=== PATIENT | female | born 1960 | race Caucasian/White ===

== ENCOUNTER → 2016-11-27 | Outpatient (CLI) | payer BC ==
[~2016-11-27] MED LIST: ALPR-412 PO; ASPCH81X PO; CALC1TAB9 PO; DULO60CA44 PO; GABA800T PO; LISI-789 PO; MULT-506 PO; TRAM-10 PO; WLLSR/150 PO; [UNRECOGNIZED DRUG - CODE] PO
[2016-11-27 12:40] LABS: BASO % 0.2 %; BASO ABS # 0.02 K/uL (0-0.2); COMPLETE YES; EOS % 0.4 %; HEMATOCRIT 40.1 % (37-47); IG% 0.2 %; LYMPH % 30.5 %; LYMPH ABS # 2.53 K/uL (1.2-3.4); MEAN CELL VOLUME 86.8 fL (80-100); MEAN CORPUSCULAR HEMOGLOBIN 29.2 pg (25-34); MEAN CORPUSCULAR HGB CONC 33.7 g/dl (32-36); MEAN PLATELET VOLUME 12.1 fL (7.4-10.4); MONO % 5.3 %; NEUT % 63.4 %; PLATELET COUNT 197 K/uL (130-400); RED BLOOD COUNT 4.62 M/uL (4.2-5.4)
[2016-11-27 12:53] LABS: ESTIMATED AVERAGE GLUCOSE 143 mg/dl; HA1C FLAG Normal (Normal)
[2016-11-27 14:15] LABS: ALKALINE PHOSPHATASE 92 U/L (45-117); ALT/SGPT 32 U/L (12-78); AST/SGOT 29 U/L (15-37); BLOOD UREA NITROGEN 16 mg/dl (7-18); BUN/CREATININE RATIO 23.3 (10-20); CALCIUM 9.1 mg/dl (8.5-10.1); CARBON DIOXIDE 26 mmol/L (21-32); CHLORIDE 106 mmol/L (98-107); GLUCOSE 102 mg/dl (70-99); POTASSIUM 4.2 mmol/L (3.5-5.1); SODIUM 141 mmol/L (136-145)
== END | disposition home or self-care (01) ==
LOC: C.LAB 11:31
PROVIDERS: ATTEND Family Medicine
DX: E11.9 Type 2 diabetes mellitus without complications (principal); E53.8 Deficiency of other specified B group vitamins

== ENCOUNTER → 2017-05-15 | Outpatient (CLI) | payer BC ==
--- NOTE | 2017-05-15 17:37 | DIAGNOSTIC IMAGING REPORT ---
LEFT HAND MIN 3 VIEWS ROUTINE CLINICAL HISTORY: M25.549 left hand pain COMPARISON: None. DISCUSSION: The bones are mildly osteopenic. No fractures are visualized. There are no erosive or destructive changes. There are osteoarthritic changes at the level of the first carpometacarpal joint. There is mild ulnar minus variance. Small corticated ossicles project anterior to the lunate on the lateral view. These are felt to be old. IMPRESSION: 1. No acute fractures 2. Osteoarthritic changes most pronounced at the level of the first carpometacarpal joint 3. Osteopenia Electronically signed by: Bill Sellers M.D. 05/15/2017 5:35 PM Dictated Date/Time: 05/15/2017 5:34 PM
--- NOTE | 2017-05-15 17:47 | DIAGNOSTIC IMAGING REPORT ---
LEFT WRIST MIN 3 VIEWS ROUTINE CLINICAL HISTORY: Left wrist pain. COMPARISON: None FINDINGS: Alignment of left wrist is anatomic. No acute fracture is identified. There is mild joint space narrowing of the radiocarpal articulation. Note is made of a 7 mm ossific/calcific density along the palmar aspect of the lunotriquetral articulation. This is chronic. There is moderate arthritis of the left first carpometacarpal joint. IMPRESSION: 1. No acute fracture or dislocation of the left wrist. 2. Moderate arthritis of the left first carpometacarpal joint and mild arthritis of the radiocarpal articulation. 3. 7 mm ossific/calcific density along the palmar aspect of the lunotriquetral articulation which is nonspecific but chronic. Electronically signed by: Jayesh Gooden M.D. 05/15/2017 5:45 PM Dictated Date/Time: 05/15/2017 5:43 PM
== END | disposition home or self-care (01) ==
LOC: C.RAD 17:14
PROVIDERS: ATTEND Nurse Practitioner Adult Health
DX: M18.52 Other unilateral secondary osteoarthritis of first carpometacarpal joint, left hand (principal); M25.532 Pain in left wrist

== ENCOUNTER → 2017-07-24 | Day surgery (SDC) | payer BC ==
[2017-07-12 13:51] VITALS: Ht 172.7 cm; Wt 84.1 kg
[~2017-07-24] VITALS: Ht 172.7 cm; Wt 84.1 kg
[~2017-07-24] MED LIST changes: +ATROPINE SULFATE 0.1 MG/ML 5ML SYR IV PRN; +BUPIVACAINE 0.5 % 5 MG/1 ML MPF 30ML VIAL ONE; +CEFAZOLIN 2000 MG/60 ML D5W IV SCH; +EpHEDrine SULFATE INJ 50 MG/ML AMP IV PRN; +FENTANYL CITRATE INJ 50 MCG/1 ML 2 ML VIAL IV PRN; +FENTANYL CITRATE INJ 50 MCG/1 ML 2 ML VIAL ONE; +LACTATED RINGER'S 1000ML 1,000 ML IV SCH; +LIDOCAINE MPF 1% INJ 30 ML SDV (L&D) INFIL ONE; +MIDAZOLAM HCL 1 MG/ML 2ML VIAL ONE; +ONDANSETRON INJ 2 MG/ML 2 ML VIAL IV PRN; +OXYCODONE/ACETAMINOPHEN 5-325 TAB PO PRN; +SODIUM CHLORIDE 0.9% 1000ML 1,000 ML IV SCH
--- NOTE | 2017-07-24 08:27 | History & Physical Bridge - [place] ---
H&P Re-Evaluation Bridge Note: I have examined the patient, reviewed the History & Physical and in the interval since the performance of the History & Physical I have noted the following changes of clinical significance: No changes noted
--- NOTE | 2017-07-24 09:05 | [facility] Post Operative Brief Note ---
Immediate Operative Summary Operative Date Jul 24, 2017. Pre-Operative Diagnosis Left Radial Styloid Tenosynovitis, Left Ganglion Post-Operative Diagnosis Same Procedure(s) Performed Left Wrist Dequervains Release Surgeon Dr. Traylor Mva Still Operator Surgeon(s) None Estimated Blood Loss 0 Findings ABOVE Specimens None Anesthesia LOCAL IV SEDATION Disposition
[2017-07-24 09:07] VITALS: TEMP 36.6
--- NOTE | 2017-07-24 09:12 | Discharge Instructions-SurgCtr ---
Discharge Instructions Date of Service Jul 24, 2017. Visit Reason for Visit: Left Radial Styloid Tenosynovitis, Left Ganglion Discharge Discharge Diagnosis / Problem: LEFT RADIAL STYLOID TENOSYNOVITIS Discharge Goals Goal(s): Decrease discomfort, Improve function Activity Recommendations Activity Limitations: as noted below Lifting Limitations: gradually increase as tolerated Exercise/Sports Limitations: until after follow-up appointment Shower/Bathe: may shower/bathe in 3 days, keep incision dry Anesthesia . Post Anesthesia Instructions: If you have had General Anesthesia or IV Sedation: * Do not drive today. * Resume driving when surgeon permits. * Do not make important decisions or sign legal documents today. * Call surgeon for: 1. Temperature elevations greater than 101 degrees F. 2. Uncontrollable pain. 3. Excessive bleeding. 4. Persistent nausea and vomiting. 5. Medication intolerance (nausea, vomiting or rash). * For nausea and vomiting use only clear liquids such as: tea, soda, bouillon until nausea subsides, then gradually increase diet as tolerated. * If you have any concerns or questions, call your surgeon's office. If physician is unavailable and it is an emergency, call 911 or go to the nearest emergency room. . Instructions / Follow-Up Instructions / Follow-Up MEDICATIONS: * Resume previous medications unless instructed otherwise by your surgeon. * Always take pain medication on a full stomach or with food to avoid upset stomach. * Do not drink alcohol or drive while taking narcotics. * Ibuprofen or Tylenol may be taken if narcotic not needed. SPECIAL CARE INSTRUCTIONS: __ None _X_ Keep extremity elevated and iced x 48 hours; apply ice 20-30 minutes 8-10 times/day. May remove at night. __ Sling __24 hrs/day __ Remove at night __ Shoulder Immobilizer __ 24 hrs/day __ Remove at night _X_ Dressing _X_ Maintain until seen in office, may shower with plastic over site __ Remove dressings in 24-48 hours and then may shower __ Cover incisions with band-aids after showering __ Do not remove steri-strips Call physician if chills or temperature rises above 102 degrees or pain unrelieved by prescribed pain medications at . . Diet Recommendations Home Diet: resume previous diet Procedures Procedures Performed: Left Wrist Dequervains Release Pending Studies Studies pending at discharge: no Medical Emergencies . Who to Call and When: Medical Emergencies: If at any time you feel your situation is an emergency, please call 911 immediately. . Non-Emergent Contact Non-Emergency issues call your: Primary Care Provider . . "Provider Documentation" section prepared by Nihs Castellano. .
--- NOTE | 2017-07-24 09:13 | Discharge Instructions-SurgCtr ---
Discharge Instructions Date of Service Jul 24, 2017. Visit Reason for Visit: Left Radial Styloid Tenosynovitis, Left Ganglion Discharge Discharge Diagnosis / Problem: LEFT RADIAL STYLOID TENOSYNOVITIS Discharge Goals Goal(s): Decrease discomfort, Improve function Activity Recommendations Activity Limitations: as noted below Lifting Limitations: until after follow-up appointment Exercise/Sports Limitations: until after follow-up appointment Shower/Bathe: keep incision dry Anesthesia . Post Anesthesia Instructions: If you have had General Anesthesia or IV Sedation: * Do not drive today. * Resume driving when surgeon permits. * Do not make important decisions or sign legal documents today. * Call surgeon for: 1. Temperature elevations greater than 101 degrees F. 2. Uncontrollable pain. 3. Excessive bleeding. 4. Persistent nausea and vomiting. 5. Medication intolerance (nausea, vomiting or rash). * For nausea and vomiting use only clear liquids such as: tea, soda, bouillon until nausea subsides, then gradually increase diet as tolerated. * If you have any concerns or questions, call your surgeon's office. If physician is unavailable and it is an emergency, call 911 or go to the nearest emergency room. . Instructions / Follow-Up Instructions / Follow-Up MEDICATIONS: * Resume previous medications unless instructed otherwise by your surgeon. * Always take pain medication on a full stomach or with food to avoid upset stomach. * Do not drink alcohol or drive while taking narcotics. * Ibuprofen or Tylenol may be taken if narcotic not needed. SPECIAL CARE INSTRUCTIONS: __ None _X_ Keep extremity elevated and iced x 48 hours; apply ice 20-30 minutes 8-10 times/day. May remove at night. __ Sling __24 hrs/day __ Remove at night __ Shoulder Immobilizer __ 24 hrs/day __ Remove at night _XX_ Dressing _X Maintain until seen in office, may shower with plastic over site __ Remove dressings in 24-48 hours and then may shower __ Cover incisions with band-aids after showering __ Do not remove steri-strips Call physician if chills or temperature rises above 102 degrees or pain unrelieved by prescribed pain medications at . . Diet Recommendations Home Diet: resume previous diet Procedures Procedures Performed: Left Wrist Dequervains Release Pending Studies Studies pending at discharge: no Medical Emergencies . Who to Call and When: Medical Emergencies: If at any time you feel your situation is an emergency, please call 911 immediately. . Non-Emergent Contact Non-Emergency issues call your: Primary Care Provider . . "Provider Documentation" section prepared by Nish Castellano. .
[2017-07-24 09:29] VITALS: BP 133/81; PULSE 54; O2SAT 99
--- NOTE | 2017-07-24 09:29 | Anesthesia Progress Nt - [facility] ---
Anesthesia Post Op Note Date & Time Jul 24, 2017 at 09:29 Vital Signs Pain Intensity: 0 Vital Signs Past 12 Hours Date Time Temp Pulse Resp B/P (MAP) Pulse Ox O2 Delivery O2 Flow Rate FiO2 07/24/17 09:07 36.6 60 20 119/74 (89) 95 Room Air 07/24/17 07:10 36.4 58 16 138/84 (102) 100 Room Air Notes Mental Status: alert / awake / arousable, participated in evaluation Pt Amnestic to Procedure: Yes Nausea / Vomiting: adequately controlled Pain: adequately controlled Airway Patency, RR, SpO2: stable & adequate BP & HR: stable & adequate Hydration State: stable & adequate Anesthetic Complications: no major complications apparent
--- NOTE | 2017-07-24 09:34 | OPERATIVE REPORT ---
DATE OF OPERATION: 07/24/2017 PREOPERATIVE DIAGNOSIS: de Quervain syndrome, left wrist, with painful cyst. POSTOPERATIVE DIAGNOSIS: de Quervain syndrome. SURGERY: Decompression first dorsal compartment, left wrist. SURGEON: Dr. Aviles. PITTING MACHINE OPERATOR: Nish Castellano PA-C. ANESTHESIOLOGIST: Dr. Colvin. ANESTHESIA: Local with IV sedation. DRAINS: None. COMPLICATION: None. CONDITION: The patient tolerated the procedure well and returned to the recovery room in apparent satisfactory condition. INDICATIONS FOR SURGERY: Bita is a 57-year-old female who has had symptoms consistent with a de Quervain syndrome. She also had a cyst there. Preoperatively, I really could not feel the cyst, I think it had popped. We are going to go ahead and do the de Quervain's first dorsal compartment release. Procedure, expected outcomes, side effects and risks were all explained in detail. PROCEDURE IN DETAIL: The patient was taken to the OR at which time she was placed supine on the operating table, given IV sedation by the anesthesia department. Left arm was prepped and draped in usual sterile fashion for surgery. We went ahead and exsanguinated the arm, put a forearm tourniquet up to 250 mmHg. We made a transverse incision over the first dorsal compartment, dissected down, retracted the sensory branch of the radial nerve and exposed the first dorsal compartment, we divided it with a 15 blade. There were a couple snips of the tendons that we identified and freed up. I could not find the cyst, I think it had popped preoperatively. Wound then was copiously irrigated and then closed with interrupted 2-0 Vicryl sutures and then we put Steri-Strips on the skin edges after Marcaine without epinephrine was placed on the skin edges. The wound was covered up with Xeroform, 4 x 4's, Sof-Rol and Braden bandage, and returned to the recovery room in apparent satisfactory condition. I attest to the content of the Intraoperative Record and any orders documented therein. Any exception s are noted below.
== END | disposition home or self-care (01) ==
LOC: X.SURG 07:05
PROVIDERS: ATTEND Orthopaedic Surgery
DX: E34.51 Complete androgen insensitivity syndrome (principal); I10 Essential (primary) hypertension; E11.9 Type 2 diabetes mellitus without complications; M06.9 Rheumatoid arthritis, unspecified; F32.9 Major depressive disorder, single episode, unspecified; F17.210 Nicotine dependence, cigarettes, uncomplicated; Z79.899 Other long term (current) drug therapy

== ENCOUNTER → 2017-09-19 | Outpatient (CLI) | payer BC ==
[~2017-09-19] MED LIST changes: -ATROPINE SULFATE 0.1 MG/ML 5ML SYR IV PRN; -BUPIVACAINE 0.5 % 5 MG/1 ML MPF 30ML VIAL ONE; -CEFAZOLIN 2000 MG/60 ML D5W IV SCH; -EpHEDrine SULFATE INJ 50 MG/ML AMP IV PRN; -FENTANYL CITRATE INJ 50 MCG/1 ML 2 ML VIAL IV PRN; -FENTANYL CITRATE INJ 50 MCG/1 ML 2 ML VIAL ONE; -LACTATED RINGER'S 1000ML 1,000 ML IV SCH; -LIDOCAINE MPF 1% INJ 30 ML SDV (L&D) INFIL ONE; -MIDAZOLAM HCL 1 MG/ML 2ML VIAL ONE; -ONDANSETRON INJ 2 MG/ML 2 ML VIAL IV PRN; -OXYCODONE/ACETAMINOPHEN 5-325 TAB PO PRN; -SODIUM CHLORIDE 0.9% 1000ML 1,000 ML IV SCH; -[UNRECOGNIZED DRUG - CODE] PO
[2017-09-19 10:36] LABS: HEMATOCRIT 39.8 % (37-47); MEAN CORPUSCULAR HEMOGLOBIN 28.1 pg (25-34); MEAN CORPUSCULAR HGB CONC 33.4 g/dl (32-36); MEAN PLATELET VOLUME 11.3 fL (7.4-10.4); PLATELET COUNT 199 K/uL (130-400); RED BLOOD COUNT 4.74 M/uL (4.2-5.4); WHITE BLOOD COUNT 8.44 K/uL (4.8-10.8)
[2017-09-19 11:19] LABS: ALT/SGPT 33 U/L (12-78); BLOOD UREA NITROGEN 15 mg/dl (7-18); BUN/CREATININE RATIO 20.8 (10-20); CALCIUM 8.8 mg/dl (8.5-10.1); CARBON DIOXIDE 27 mmol/L (21-32); CHLORIDE 106 mmol/L (98-107); CHOLESTEROL 191 mg/dl (0-200); CREATININE 0.74 mg/dl (0.60-1.20); GLUCOSE 103 mg/dl (70-99); POTASSIUM 4.4 mmol/L (3.5-5.1); SODIUM 139 mmol/L (136-145)
[2017-09-19 11:24] LABS: ESTIMATED AVERAGE GLUCOSE 137 mg/dl; HA1C FLAG Normal (Normal)
[2017-09-19 11:30] LABS: ALB/GLOB RATIO 0.9 (0.9-2); ALKALINE PHOSPHATASE 105 U/L (45-117); AST/SGOT 30 U/L (15-37); CHOLESTEROL/HDL RATIO 2.4; HDL CHOLESTEROL 79 mg/dl; LDL CHOLESTEROL CALCULATED 97 mg/dl; TRIGLYCERIDES 76 mg/dl (0-150); VERY LOW DENSITY LIPOPROT CALC 15 mg/dl
== END | disposition home or self-care (01) ==
LOC: C.LAB 09:43
PROVIDERS: ATTEND Family Medicine
DX: D50.9 Iron deficiency anemia, unspecified (principal); I10 Essential (primary) hypertension; E78.5 Hyperlipidemia, unspecified; E11.9 Type 2 diabetes mellitus without complications; E53.8 Deficiency of other specified B group vitamins

== ENCOUNTER → 2017-11-28 | Outpatient (CLI) | payer BC ==
[2017-11-28 10:28] LABS: BLOOD UREA NITROGEN 20 mg/dl (7-18); CALCIUM 8.8 mg/dl (8.5-10.1); CARBON DIOXIDE 26 mmol/L (21-32); GLUCOSE 138 mg/dl (70-99); SODIUM 137 mmol/L (136-145)
== END | disposition home or self-care (01) ==
LOC: C.LAB 09:12
PROVIDERS: ATTEND Nurse Practitioner Adult Health
DX: I10 Essential (primary) hypertension (principal)

== ENCOUNTER → 2018-03-01 | Outpatient (CLI) | payer OTHER ==
[~2018-03-01] MED LIST changes: -TRAM-10 PO
== END | disposition home or self-care (01) ==
LOC: C.CPL 11:35
PROVIDERS: ATTEND Orthopaedic Surgery
DX: S42.022A Displaced fracture of shaft of left clavicle, initial encounter for closed fracture (principal); X58.XXXA Exposure to other specified factors, initial encounter

== ENCOUNTER → 2018-03-08 | Day surgery (SDC) | payer OTHER ==
--- NOTE | 2018-03-07 12:14 | History and Physical ---
History & Physical Date March 07, 2018. Chief Complaint Left clavicle fracture History of Present Illness The patient is a 57 year old female with complaints of left shoulder and clavicle pain. She sustained a trip and fall while at work on 02/27/18 and was seen by Urgent Care and placed in a sling. X-rays were taken in the office showing displaced clavicle fracture. Patient has complaint of a considerable amount of pain. No shooting pain and no numbness or tingling in left arm/hand. Patient states that she has been having a headache starting in left sided shoulder/neck musculature since the injury. Patient denies any chest pain, sob, ortiz, wheezing, n/v/d/c, fever, chills, sweats, urinary symptoms. Patient was initially scheduled fro surgery on 03/07/18 but the decision to cancel her surgery was made due to an O2 sat of 90% on RA. Will proceed with surgery at [facility] on 03/08/18. Past Medical/Surgical History Past Medical Hx: Anxiety, hypertension, hyperlipidemia, DM2, polyneuropathy, obesity, Iron deficiency anemia, B12 deficiency Past Surgical Hx: Cholecystectomy, gastric bypass, carpal tunnel release, hernia repair, tonsillectomy, section x 2 Social history: Patient is 1 ppd smoker. She denies drug or alcohol use. She lives in a 1 story home and is employed Medications include: Aspirin, Calcium-Vit D, Tramadol, Pramipexole, Flonase, Hydrochlorothiazide, Duloxetine, Bupropion HCL ER, Meloxicam, Lyrica, and Metformin Additional History Hepatic Disease: No Endocrine Disorder: Yes (DM2) Kidney Disease: No Hypertension: Yes Heart Disease: No Bleeding Tendencies: No Infectious Diseases: No Allergies Coded Allergies: No Known Allergies (Verified , 07/24/17) Home Medications Scheduled Aspirin (Aspirin Chewable), 81 MG PO DAILY AT LUNCH Bupropion Hcl (Wellbutrin Sr), 150 MG PO AM AND NOON Calcium Citrate-Vitamin D (Citracal + D3 Maximum), 2 TAB PO BID Duloxetine Hcl (Cymbalta), 60 MG PO DAILY AT LUNCH Gabapentin (Neurontin), 800 MG PO TID Lisinopril (Zestril), 2.5 MG PO QPM Multivitamin (Multivitamin), 1 TAB PO QAM Scheduled PRN Alprazolam (Alprazolam), 1 TAB PO BID PRN for Anxiety Physical Examination Skin: warm/dry, no rash Eyes: normal inspection, sclerae normal ENT: normal ENT inspection, pharynx normal Head: normocephalic, atraumatic Neck: supple, no adenopathy, trachea midline Respiratory/Chest: lungs clear, no respiratory distress Cardiovascular: regular rate, rhythm, no murmur Extremities: + pertinent finding Neurologic/Psych: no motor/sensory deficits, alert, oriented x 3 Addiitonal Comments: X-ray findings: Left displaced mid shaft clavicle fracture with shortening and central comminution Diagnosis Left Displaced mid shaft clavicular fracture. Plan of Treatment Treatment options were discussed with the patient. Ricks, benefits, and alternatives to surgery were explained including, but no limited to infection, DVT, pain, stiffness, non-union, need for revision surgery, failure to relieve all symptoms, damage to blood vessels, damage to nerves, risks of anesthesia and patient wishes to proceed with surgery. Will plan for ORIF of left clavicle fracture. Surgery scheduled for 03/08/18.
[2018-03-07 16:23] VITALS: Ht 172.7 cm; Wt 79.5 kg
[~2018-03-08] VITALS: Ht 172.7 cm; Wt 79.5 kg
[~2018-03-08] MED LIST changes: +ACET-1256 PO; +ACETAMINOPHEN 325 MG TAB PO PRN; +ATROPINE SULFATE 0.1 MG/ML 5ML SYR IV PRN; +BUPIVACAINE 0.5 % 5 MG/1 ML MPF 30ML VIAL ONE; +CEFAZOLIN 1000MG IV PUSH 7.5 ML IV SCH; +CEFAZOLIN SOD 1000MG/7.5 ML IV PUSH ONE; +CEPH500C2 PO; +DEXAMETHASONE SOD INJ 4 MG/ML VIAL ONE; +DPRSCR15 TOP; +EpHEDrine SULFATE INJ 50 MG/ML AMP IV PRN; +EpINEphrine HCL INJ 1 MG/ML 1ML SYRINGE ONE; +FENTANYL CITRATE INJ 50 MCG/1 ML 2 ML VIAL IV PRN; +FENTANYL CITRATE INJ 50 MCG/1 ML 2 ML VIAL ONE; -GABA800T PO; +GLC/500 PO; +HYDROmorphone INJ 1 MG/ML SYR IV PRN; +LABETALOL HCL IV 5 MG/ML 20ML IV PRN; +LIDOCAINE HCL 2% 2 ML VIAL (20MG/ML) ONE; +MEPERIDINE HCL 25 MG/ML CARP IV PRN; +MIDAZOLAM HCL 1 MG/ML 2ML VIAL ONE; +MoRPHine SULFATE 4 MG/ML 1 ML CARP\\VIAL IV PRN; +ONDANSETRON INJ 2 MG/ML 2 ML VIAL IV PRN; +ONDANSETRON INJ 2 MG/ML 2 ML VIAL ONE; +OXYC-57 PO; +OXYCODONE HCL IR 5 MG TAB (IMMEDIATE RELEASE) PO PRN; +PRAM0.1212 PO; +PREG1CAP28 PO; +PROPOFOL IV EMULSION 10 MG/ML 20 ML VIAL ONE; +ROCURONIUM BROMIDE 10 MG/ML 5 ML VIAL ONE; +TRAM-10 PO
[2018-03-08 12:37] VITALS: BP 138/77; PULSE 62; TEMP 36.8; O2SAT 98
--- NOTE | 2018-03-08 15:10 | [facility] Operative Report ---
Operative Report Operative Date March 08, 2018. Pre-Operative Diagnosis Left Displaced Mid Shaft Clavicular Fracture. Post-Operative Diagnosis Same as preoperative Procedure(s) Performed Left Clavicle Fracture Open Reduction Internal Fixation Surgeon Dr. Patrick Faye Plastics Spreading Machine Operator Surgeon(s) David Orta PA-C Estimated Blood Loss 20ml Specimens None per surgeon. Drains None Anesthesia Type General Complication(s) none Disposition Recovery Room / PACU Indications The patient is a 57-year-old female who sustained a displaced left clavicle fracture. Given the amount of displacement I recommended open reduction and internal fixation. Description of Procedure Risks, benefits, and alternatives to surgery including but not limited to infection, pain, stiffness, nonunion, need for revision surgery, DVT, damage to blood vessels, damage to nerves, risks of anesthesia were discussed with the patient and they wished to proceed. The patient was identified and laterality was confirmed and marked. The patient received a preoperative antibiotic and was transferred to the operating room and placed in supine position and induced into general endotracheal anesthesia. She was placed in a slight beachchair position. The clavicles and prepped and draped in the usual standard manner with ChloraPrep. I made an incision in line with the clavicle sharply incising the skin and using Bovie electrocautery to achieve hemostasis. I incised the clavipectoral fascia. I was careful to identify and protect the crossing sensory nerve branches. I then dissected down to the fracture site. I removed any interposing callus that had formed. This was cleared with a combination of a wood handled elevator and a curet and rongeur. Once the fracture was mobilized used 2 reduction clamps to reduce the fracture. I then used a Synthes 6-hole with lateral extension precontoured locking plate. Under fluoroscopic guidance I positioned the clavicle plate appropriately and placed a nonlocking screw laterally. I confirmed positioning on fluoroscopy and placed another nonlocking screw medially. And then while holding the reduction with reduction clamp I placed an additional locking screw laterally. This maintained good reduction and placement of the plate. I then placed additional 2 locking screws in the medial aspect the plate. [I then placed 5 2.7 mm locking screws into the lateral aspect of the plate.] Then under fluoroscopy I confirmed that I was satisfied with the alignment of the fracture and placement of the implants. The wound was thoroughly irrigated. Fascia was closed with interrupted #1 Vicryl suture. Subcutaneous tissue and interrupted 2-0 Vicryl suture. 3-0 nylon. A sterile dressing was applied. All needle and sponge counts were correct at the end of the procedure. The patient was transferred to the PACU in stable condition without apparent complication. The PA-C was necessary for assistance with procedure for assistance in positioning, prepping, draping, retraction and closure. I attest to the content of the Intraoperative Record and any orders documented therein. Any exceptions are noted below.
--- NOTE | 2018-03-08 15:13 | DIAGNOSTIC IMAGING REPORT ---
L CLAVICLE CLINICAL HISTORY: 57 years-old Female presenting with LEFT CLAVICLE ORIF. TECHNIQUE: 1 fluoroscopic image(s) recorded as part of an intraoperative procedure. COMPARISON: None. FINDINGS/IMPRESSION: Cortical compression plate and screw fixation of the mid to distal clavicle. Anatomic alignment maintained. Please see surgical report for further details. Fluoroscopy dosage (mGy): 0.9. Fluoroscopy time: 9.4 seconds. Number of fluoroscopic spot images: 0. Electronically signed by: Patrick Pate M.D. 03/08/2018 3:12 PM Dictated Date/Time: 03/08/2018 3:11 PM
[2018-03-08 16:00] VITALS: BP 118/61; PULSE 60; TEMP 36.6; O2SAT 96
--- NOTE | 2018-03-08 16:01 | Discharge Instructions ---
Discharge Instructions Date of Service March 08, 2018. Visit Reason for Visit: Displaced Fracture Of Shaft Of Left Clavicle Discharge Discharge Diagnosis / Problem: Displaced Left Clavicle Fracture Discharge Goals Goal(s): Decrease discomfort, Improve function Activity Recommendations Activity Limitations: per Instructions/Follow-up section Weightbearing Status: Left non-weightbearing (Left upper extremity) Anesthesia . Post Anesthesia Instructions: If you have had General Anesthesia or IV Sedation: * Do not drive today. * Resume driving when surgeon permits. * Do not make important decisions or sign legal documents today. * Call surgeon for: 1. Temperature elevations greater than 101 degrees F. 2. Uncontrollable pain. 3. Excessive bleeding. 4. Persistent nausea and vomiting. 5. Medication intolerance (nausea, vomiting or rash). * For nausea and vomiting use only clear liquids such as: tea, soda, bouillon until nausea subsides, then gradually increase diet as tolerated. * If you have any concerns or questions, call your surgeon's office. If physician is unavailable and it is an emergency, call 911 or go to the nearest emergency room. . Instructions / Follow-Up Instructions / Follow-Up Keep dressing clean and dry Use the arm sling until seen in the office in 2 weeks You may change the dressing in 48 hours. Cover with gauze and tape. Keep the wound covered until seen back in the office If the wound is dry, you can shower in 72 hours after surgery. Do not soak the wound. No tub baths. No direct shower pressure on the wound. Call the office if you notice a fever of 101.5 or greater, increased redness or drainage from the wound, increased pain not relieved by your pain meds. [phone] Call to arrange an appointment to see Dr Faye in the office in 2 weeks from the day of your surgery. Diet Recommendations Recommended Home Diet: resume previous diet Procedures Procedures Performed: Left Clavicle Fracture Open Reduction Internal Fixation Pending Studies Studies pending at discharge: no Medical Emergencies . Who to Call and When: Medical Emergencies: If at any time you feel your situation is an emergency, please call 911 immediately. . Non-Emergent Contact Non-Emergency issues call your: Surgeon Call Non-Emergent contact if: temperature is above 101.5, your pain is not controlled, your pain is worsening, wound has increased drainage, wound has increased redness . . "Provider Documentation" section prepared by David Orta. . [place] Drug Monitoring Program Search Results: patient reviewed within database, no issues identified
--- NOTE | 2018-03-08 16:23 | Anesthesiology Progress Note ---
Anesthesia Post Op Note Date & Time March 08, 2018 at 16:23 Vital Signs Pain Intensity: 0 Vital Signs Past 12 Hours Date Time Temp Pulse Resp B/P (MAP) Pulse Ox O2 Delivery O2 Flow Rate FiO2 03/08/18 16:20 116/57 03/08/18 16:16 63 15 03/08/18 16:16 63 15 112/60 96 03/08/18 16:11 66 18 94 03/08/18 16:11 66 18 03/08/18 16:10 108/54 03/08/18 16:07 63 12 94 03/08/18 16:07 62 12 03/08/18 16:06 105/58 03/08/18 16:06 37.1 64 19 108/54 (69) 95 Room Air 03/08/18 16:02 62 14 97 03/08/18 16:02 62 14 03/08/18 16:00 124/64 03/08/18 15:57 72 21 98 03/08/18 15:57 72 21 03/08/18 15:56 113/71 03/08/18 15:56 113/71 03/08/18 15:55 71 25 98 03/08/18 15:55 71 25 03/08/18 15:55 71 25 98 03/08/18 15:55 71 25 03/08/18 15:51 126/60 03/08/18 15:51 126/60 03/08/18 15:50 71 14 03/08/18 15:50 71 14 95 03/08/18 15:50 71 14 95 03/08/18 15:50 71 14 03/08/18 15:46 118/60 03/08/18 15:46 118/60 03/08/18 15:45 72 15 03/08/18 15:45 70 15 97 03/08/18 15:45 70 15 97 03/08/18 15:45 72 15 03/08/18 15:40 13 03/08/18 15:40 71 13 116/60 03/08/18 15:40 13 03/08/18 15:40 36.1 72 20 116/60 (72) 98 Nasal Cannula 2 03/08/18 15:40 71 13 116/60 03/08/18 12:37 36.8 62 18 138/77 (97) 98 Room Air Notes Mental Status: alert / awake / arousable, participated in evaluation Pt Amnestic to Procedure: Yes Nausea / Vomiting: adequately controlled Pain: adequately controlled Airway Patency, RR, SpO2: stable & adequate BP & HR: stable & adequate Hydration State: stable & adequate Anesthetic Complications: no major complications apparent
[2018-03-08 17:00] VITALS: BP 104/60; PULSE 79; TEMP 36.6; O2SAT 96
== END | disposition home or self-care (01) ==
LOC: C.ACU 12:07
PROVIDERS: ATTEND Orthopaedic Surgery
DX: S42.022A Displaced fracture of shaft of left clavicle, initial encounter for closed fracture (principal); W01.0XXA Fall on same level from slipping, tripping and stumbling without subsequent striking against object, initial encounter; E11.9 Type 2 diabetes mellitus without complications; F17.200 Nicotine dependence, unspecified, uncomplicated; I10 Essential (primary) hypertension; E78.5 Hyperlipidemia, unspecified; E11.40 Type 2 diabetes mellitus with diabetic neuropathy, unspecified; D50.9 Iron deficiency anemia, unspecified; E53.8 Deficiency of other specified B group vitamins; Z90.49 Acquired absence of other specified parts of digestive tract; Z98.84 Bariatric surgery status; Z79.82 Long term (current) use of aspirin